=== PATIENT | female | born 1990 | race Hispanic/Latino ===

== ENCOUNTER 2017-09-22 20:16 | Emergency (ER) | payer OTHER ==
[2017-09-22 20:20] VITALS: TEMP 98.1; O2SAT 98
[2017-09-22] MEDS ORDERED: Albuterol-Ipratrop 3 mg / 0.5 (3 ml) UD ONE ×3 (20:31→22:20)
[2017-09-22] MEDS ORDERED: Albuterol-Ipratrop 3 mg / 0.5 (3 ml) UD INH STA ×3 (20:38→21:58)
--- NOTE | 2017-09-22 21:25 | C.PDOC ---
History Of Present Illness 26 year old female presents to the ER with a complaint of SOB for the past 3 days, associated with cough and wheezing. Patient reports she has seasonal allergies and every year around this time she gets SOB. Patient has been taking migue with no relief. Denies chest pain, Hx of DVT/PE, tobacco use, control use, recent travel, or recent surgery. Time Seen by Provider: 09/22/17 21:04 History Per: Patient History/Exam Limitations: no limitations Onset/Duration Of Symptoms: Days Current Symptoms Are (Timing): Still Present Initiating Event: Other (Seasonal allergies) Current Respiratory Medications: None Associated Symptoms: denies: Fever, Chills, Chest Pain Recent travel outside of the [place]: No Past Medical History Reviewed: Historical Data, Nursing Documentation, Vital Signs Vital Signs: Last Vital Signs Temp 98.1 F 09/22/17 22:41 Pulse 92 H 09/22/17 22:41 Resp 18 09/22/17 22:41 BP 108/67 09/22/17 22:41 Pulse Ox 98 09/22/17 22:41 - [facility] APPLICATION OF SPLINT (09/20/05) NEBULIZER THERAPY (09/27/03) Family History: States: Unknown Family Hx - Social History Hx Alcohol Use: No Hx Substance Use: No - Immunization History Hx Tetanus Toxoid Vaccination: No Hx Influenza Vaccination: No Hx Pneumococcal Vaccination: No Review Of Systems Except As Marked, All Systems Reviewed And Found Negative. Constitutional: Negative for: Fever, Chills Cardiovascular: Negative for: Chest Pain Respiratory: Positive for: Cough, Shortness of Breath, Wheezing Physical Exam - Physical Exam Appears: Non-toxic Skin: Normal Color, Warm, Dry Head: Atraumatic, Normacephalic Eye(s): bilateral: Normal Inspection Oral Mucosa: Moist Chest: Symmetrical, No Tenderness Cardiovascular: Rhythm Regular Respiratory: No Rales, No Rhonchi, Wheezing (Bilateral) Gastrointestinal/Abdominal: Soft, No Tenderness Extremity: No Calf Tenderness, No Swelling Neurological/Psych: Oriented x3, Normal Speech ED Course And Treatment - Laboratory Results Result Diagrams: 09/22/17 21:27 09/22/17 21:27 O2 Sat by Pulse Oximetry: 98 (Room air) Pulse Ox Interpretation: Normal Medical Decision Making Medical Decision Making: Assessment: Bronchospasm Plan: * EKG * Blood work * CXR * Duoneb * Solumedrol * reassess * * ekg - nsr at rate of 102 bpm with nrm intervals, nrm axis, nonspecific twave changes * patient states improvement and will discharge home to follow up with pmd in 2 days * cxr - preliminary reading shows increased marking rlll Disposition Counseled Patient/Family Regarding: Studies Performed, Diagnosis, Need For Followup, Rx Given - Disposition Referrals: [facility] [Outside] Disposition: HOME/ ROUTINE Disposition Time: 23:01 Condition: STABLE Additional Instructions: follow up with your doctor in 2 days call to make an appointment take medications as prescribed return to ER if symptoms worsens or progress Prescriptions: Albuterol Sulfate [Proventil Hfa] 2 puff IH QID #1 hfa.aer.ad Azithromycin [Zithromax] 250 mg PO DAILY #4 tab predniSONE [predniSONE Tab] 50 mg PO DAILY #4 tab Instructions: Pneumonia, Adult (DC) Forms: General Discharge Instructions, [facility] (Mosotho), Work Excuse - Clinical Impression Clinical Impression: Pneumonia - Scribe Statement The provider has reviewed the documentation as recorded by the Scribteresa Salinas All medical record entries made by the Kenrickibe were at my direction and personally dictated by me. I have reviewed the chart and agree that the record accurately reflects my personal performance of the history, physical exam, medical decision making, and the department course for this patient. I have also personally directed, reviewed, and agree with the discharge instructions and disposition.
[2017-09-22 21:31] LABS: BASO % 0.4 % (0.0-2.0); EOS # 0.4 K/uL (0.0-0.7); EOS % 4.1 % (0.0-4.0); HEMOGLOBIN 12.7 g/dL (11.0-16.0); LYMPH # 2.5 K/uL (1.0-4.3); LYMPH % 22.7 % (20.0-40.0); MEAN CELL VOLUME 96.9 fL (81.0-99.0); MEAN CORPUSCULAR HEMOGLOBIN 33.8 pg (27.0-31.0); MEAN CORPUSCULAR HGB CONC 34.9 g/dL (33.0-37.0); MEAN PLATELET VOLUME 9.1 fL (7.2-11.7); MONO # 0.8 K/uL (0.0-0.8); MONO % 7.1 % (0.0-10.0); NEUT # 7.1 K/uL (1.8-7.0); NEUT % 65.7 % (50.0-75.0); RBC 3.75 Mil/uL (3.80-5.20); RED CELL DISTRIBUTION WIDTH 12.3 % (11.5-14.5); WHITE BLOOD COUNT 10.9 K/uL (4.8-10.8)
[2017-09-22 21:43] LABS: ALB/GLOB RATIO 1.3 (1.0-2.1); ALBUMIN 4.2 g/dL (3.5-5.0); ALT/SGPT 22 U/L (9-52); AST/SGOT 26 U/L (14-36); BLOOD UREA NITROGEN 6 mg/dL (7-17); CALCIUM 8.8 mg/dl (8.6-10.4); GFR AFRICAN-AMERICAN > 60; GFR NON-AFRICAN AMERICAN > 60
[2017-09-22 22:42] VITALS: BP 108/67; PULSE 92; RESP 18
--- NOTE | 2017-09-23 08:32 | RAD ---
Chest x-ray two views History: Shortness of breath. Comparison: None available. Findings: Patchy increased markings in the mid to lower lung zones bilaterally. More focal nodular consolidative changes at the right lung base. Right hilar prominence. Heart size within normal limits. Bibasilar breast and nipple shadows. Impression: Patchy increased markings in the mid to lower lung zones bilaterally. More focal nodular consolidative changes at the right lung base. Right hilar prominence. Heart size within normal limits. Posttreatment interval study would be helpful ensure resolution of nodular consolidation.
--- NOTE | 2017-09-23 16:26 | CARD ---
APPROVED REPORT EKG Measurement Heart [id number] <Conclusion> Sinus tachycardia Nonspecific T wave abnormality Abnormal ECG
== END 2017-09-22 23:18 | disposition home or self-care (01) ==
LOC: C.ER 20:16
DX: J18.9 Pneumonia, unspecified organism (principal)
CPT/HCPCS: 71046; 80053; 84484; 85025; 85378; 93005; 96374; 99285; J2930